=== PATIENT | male | born 1980 | race African-American/Black ===

== ENCOUNTER 2017-04-16 09:18 | Emergency (ER) | payer OTHER ==
--- NOTE | ~2017-04-16 | CR7 ---
[facility] A Service of [facility] RADIOLOGY TEXT RESULTS PATIENT: LORRI RANDLE LOCATION: SED : 79 UNIT #: [id number] AGE: [address]: Ramon Freed MD SEX: M ORDER DR: [id number] [place] [id number] E MR#: [id number] Acc #: [id number] NAME: LORRI RANDLE : 1980 SEX: M STUDY DATE/TIME: 04/16/2017 9:50 UNIT: SED ROOM: STUDY DESCRIPTION: CR Abdomen Single AP View Attending Physician: Ramon Freed M.D. Ordering Physician: Ramon Freed M.D. Primary Care Physician: Primary Care Physician No MEDICAL IMAGING REPORT This report is preliminary unless electronic signature is present. EXAM AP view of the abdomen. INDICATIONS Abdominal pain for 3 days. Patient has a history of stones and has right-sided pain today. FINDINGS Exam is degraded by significant overlying bowel gas. There is a radiopaque density, which I think may reflect a stone within the inferior pole of the left kidney. There also is another radiopaque density seen projecting over the inferior pole of the right kidney which could reflect an additional stone or some additional bowel gas material. Given fairly extensive fecal burden, correlation with history of constipation is recommended. Bowel gas pattern, however, is not frankly obstructive. IMPRESSION Questionable stones seen within the inferior poles of the kidneys bilaterally; however, assessment of the kidneys is obscured by overlying bowel gas. Given fairly extensive fecal burden, correlation with any history of constipation is recommended. If clinical concern for obstructing stone persists, further evaluation with CT is recommended. Dictated by... Gabriela Callejas M.D. THIS IS AN ELECTRONICALLY VERIFIED REPORT Gabriela Callejas M.D. at 04/18/2017 8:03 AM AFF/psc TD: 04/16/2017 22:54 [facility] A Service of [facility] / [facility] RADIOLOGY TEXT RESULTS PATIENT: LORRI RANDLE LOCATION: SED : 79 UNIT #: [id number] AGE: [address]: Ramon Freed MD SEX: M ORDER DR: TERESO #: [id number] MEDICAL IMAGING REPORT Page 1 of 1
[~2017-04-16 09:18] MED LIST: ANTIVERT PO; MOTRIN PO; ZESTRIL10 M1 PO; ZOFRAN PO
[2017-04-16 09:38] LABS: URINE SOURCE CLEAN CATCH
[2017-04-16 09:40] LABS: URINE APPEARANCE CLEAR; URINE BILIRUBIN NEG (NEG); URINE BLOOD NEG (NEG); URINE COLOR YELLOW; URINE GLUCOSE NEG (NORM); URINE KETONE NEG (NEG); URINE LEUKOCYTE ESTERASE NEG (NEG); URINE NITRATE NEG (NEG); URINE PH 5.5 (5-8); URINE PROTEIN NEG (NEG); URINE SPECIFIC GRAVITY >=1.030 (1.003-1.035); URINE UROBILINOGEN 0.2 MG/DL (NORM)
[2017-04-16 09:42] LABS: MICRO INDICATED? NO
[2017-04-16 09:46] LABS: BASOPHIL# 0.1 X10e3 (0-0.3); EOSINOPHIL# 0.1 X10e3 (0-0.7); EOSINOPHIL% 0.9 % (0.0-7.0); HEMATOCRIT 45.3 % (38.0-50.0); HEMOGLOBIN 15.4 gm/dL (13.0-16.0); LYMPHOCYTE# 2.3 X10e3 (1.0-3.5); LYMPHOCYTE% 37.2 % (17.0-45.0); MEAN CELL VOLUME 88.9 FL (83-96); MEAN CORPUSCULAR HEMOGLOBIN 30.3 PG (28-34); MEAN CORPUSCULAR HGB CONC 34.1 g/dL (30-36); MEAN PLATELET VOLUME 9.5 FL (6.5-11.5); MONOCYTE# 0.4 X10e3 (0-1.0); MONOCYTE% 6.2 % (3.0-12.0); NEUTROPHIL# 3.4 X10e3 (1.5-7.1); NEUTROPHIL% 54.7 % (40-75); PLATELET COUNT 136 X10e3 (140-420); RED CELL DISTRIBUTION WIDTH 14.6 % (11.0-15.5); WHITE BLOOD COUNT 6.1 X10e3 (4.0-10.5)
[2017-04-16 09:51] LABS: DIFF IND NO
[2017-04-16 10:01] LABS: CALCIUM SERUM 8.7 mg/dL (8.4-10.2); CREATININE SERUM 1.1 mg/dL (0.6-1.4); GLOM FILT RATE Estimated 98.9 mL/min (>60); POTASSIUM 4.4 mmol/L (3.5-5.1)
== END 2017-04-16 10:30 | disposition home or self-care (01) ==
LOC: SED 09:18
PROVIDERS: Emergency Medicine
DX: S39.012A Strain of muscle, fascia and tendon of lower back, initial encounter (principal); R10.9 Unspecified abdominal pain; F17.200 Nicotine dependence, unspecified, uncomplicated; Z87.442 Personal history of urinary calculi; Z88.6 Allergy status to analgesic agent; Z79.899 Other long term (current) drug therapy; X58.XXXA Exposure to other specified factors, initial encounter; Y92.9 Unspecified place or not applicable
CPT/HCPCS: 74000; 80048; 81003; 85025; 96374; 96375; 99284; J1885; J2405

== ENCOUNTER 2017-04-19 08:43 | Emergency (ER) | payer OTHER ==
--- NOTE | ~2017-04-19 | EKG ---
PATIENT: RAZIA, LORRI UNIT #: [id number] Ventricular Rate: 59 BPM Atrial Rate: 59 BPM P-R Interval: 152 ms QRS Duration: 80 ms Q-T Interval: 442 ms QTC Calculation(Bezet): 437 ms P [place]: 73 degrees Calculated R [place]: 51 degrees Calculated T [place]: 72 degrees Diagnosis Line: Sinus bradycardia with Premature atrial complexes Diagnosis Line: Otherwise normal ECG Diagnosis Line: When compared with ECG of 29-MAY-2014 12:44, Diagnosis Line: Premature atrial complexes are now Present Diagnosis Line: Confirmed by SHAR WHATLEY MD ([id number]) on Diagnosis Line: 04/26/2017 8:59:59 AM INTERPRETING MD: PHYLICIA JADE
--- NOTE | ~2017-04-19 | CT71 ---
[facility] A Service of [facility] RADIOLOGY TEXT RESULTS PATIENT: LORRI RANDLE LOCATION: SED : 79 UNIT #: [id number] AGE: [address]: Dex Oscar MD SEX: M ORDER DR: [id number] [place] [id number] MR#: [id number] Acc #: [id number] NAME: LORRI RANDLE : 1980 SEX: M STUDY DATE/TIME: 04/19/2017 9:38 UNIT: SED ROOM: STUDY DESCRIPTION: CT Head Wo Contrast Attending Physician: Dex Oscar M.D. Ordering Physician: Dex Oscar M.D. Primary Care Physician: Primary Care Physician No MEDICAL IMAGING REPORT This report is preliminary unless electronic signature is present. EXAM Head CT without HISTORY Dizziness, hot-cold sensation, diarrhea, pain behind both eyes for 2 days. History of hypertension and seizure disorder. 36-year-old male. COMMENT Routine noncontrast head CT is reviewed. There is a comparison from 01/20/2016. Imaging acquired in the axial plane. This CT examination was performed with one or more of the following radiation dose reduction techniques: automatic exposure control, adjustment of mA and/or kV according to patient size, and iterative reconstruction. There is no displaced calvarial fracture. Mastoid air cells show a small amount of fluid or inflammatory change right mastoid tip. The paranasal sinuses are clear where visualized. There is no evidence for acute intracranial hemorrhage or extraaxial fluid collection. The ventricles are normal in size and configuration and the hand-white junction is well-maintained. There is no intracranial mass effect. Nothing to suggest acute cortical infarct but if this is of clinical concern followup imaging is recommended preferably with MRI if the patient is a candidate. Beam-hardening artifact partly obscures the brainstem. IMPRESSION Negative noncontrast head CT. Dictated by... Regina Fay M.D. [facility] A Service of [facility] RADIOLOGY TEXT RESULTS PATIENT: LORRI RANDLE LOCATION: SED : 79 UNIT #: [id number] AGE: [address]: Dex Oscar MD SEX: M ORDER DR: THIS IS AN ELECTRONICALLY VERIFIED REPORT Regina Fay M.D. at 04/19/2017 5:54 PM AFTAB/nelida TD: 04/19/2017 12:24 JOB #: [id number] MEDICAL IMAGING REPORT Page 1 of 1
[2017-04-19] MEDS ORDERED: NO MEDICATIONS (08:53)
[2017-04-19 09:27] LABS: BASOPHIL% 0.4 % (0-2.5); EOSINOPHIL% 0.3 % (0.0-7.0); HEMATOCRIT 43.8 % (38.0-50.0); HEMOGLOBIN 15.1 gm/dL (13.0-16.0); LYMPHOCYTE# 2.4 X10e3 (1.0-3.5); LYMPHOCYTE% 40.9 % (17.0-45.0); MEAN CELL VOLUME 87.9 FL (83-96); MEAN CORPUSCULAR HEMOGLOBIN 30.4 PG (28-34); MEAN CORPUSCULAR HGB CONC 34.6 g/dL (30-36); MEAN PLATELET VOLUME 9.5 FL (6.5-11.5); MONOCYTE# 0.4 X10e3 (0-1.0); NEUTROPHIL% 51.4 % (40-75); PLATELET COUNT 124 X10e3 (140-420); RED BLOOD COUNT 4.98 X10e (3.90-5.60); RED CELL DISTRIBUTION WIDTH 14.4 % (11.0-15.5); WHITE BLOOD COUNT 5.9 X10e3 (4.0-10.5)
[2017-04-19 09:35] LABS: DIFF IND NO
[2017-04-19 09:48] LABS: ALBUMIN SERUM 3.9 g/dL (3.5-5.0); BILIRUBIN, DIRECT 0.1 mg/dL (0.0-0.2); BILIRUBIN,INDIRECT 0.8 mg/dL (0.0-0.9); BILIRUBIN,TOTAL 0.9 mg/dL (0.2-2.0); BUN/CREATININE RATIO 8.18; CALCIUM SERUM 8.6 mg/dL (8.4-10.2); CREATININE SERUM 1.1 mg/dL (0.6-1.4); GLOM FILT RATE Estimated 98.9 mL/min (>60); POTASSIUM 3.5 mmol/L (3.5-5.1); PROTEIN TOTAL SERUM 7.6 g/dL (6.0-8.3)
[2017-04-19] MEDS ORDERED: LISINOPRIL10 MG PO (22:54)
[2017-04-19] MEDS ORDERED: FLEXERIL10 MG PO (23:00)
[2017-04-19] MEDS ORDERED: VOLTAREN75 MG PO (23:00)
[2017-04-20 11:58] LABS: POC - CKMB <1.0 ng/mL (0.0-7.9); POC - TROPONIN <0.05 ng/mL (<=0.05)
== END 2017-04-19 11:32 | disposition home or self-care (01) ==
LOC: SED 08:43
PROVIDERS: Emergency Medicine
DX: I10 Essential (primary) hypertension (principal); R53.83 Other fatigue; R51 Headache; F17.200 Nicotine dependence, unspecified, uncomplicated; Z88.6 Allergy status to analgesic agent
CPT/HCPCS: 36415; 70450; 80048; 80076; 82553; 84484; 85025; 93005; 96361; 96374; 96375; 99285; J1885; J2270; J2405

== ENCOUNTER 2017-04-19 21:19 | Observation (INO) | payer OTHER ==
--- NOTE | ~2017-04-19 | CT17 ---
[facility] A Service of [facility] RADIOLOGY TEXT RESULTS PATIENT: LORRI RANDLE LOCATION: [facility] 555-01 : 79 UNIT #: [id number] AGE: [address]: Orlando Wall MD SEX: M ORDER DR: [id number] [facility] [address] [place], [place] [address] [id number] I MR#: [id number] Acc #: [id number] NAME: LORRI RANDLE : 1980 SEX: M STUDY DATE/TIME: 04/20/2017 17:55 UNIT: [facility] ROOM: [facility] STUDY DESCRIPTION: CT Angio Head Attending Physician: Orlando Wall M.D. Ordering Physician: Orlando Wall M.D. Primary Care Physician: Primary Care Physician No MEDICAL IMAGING REPORT This report is preliminary unless electronic signature is present EXAM CT angiography neck/head HISTORY Vertigo. Syncopal episode. Headache. Vomiting. FINDINGS CT angiography of the neck and head performed. Multiple three-dimensional reconstructions of the vascular structures performed. Patient received 100 mL Isovue 370 intravenously. No prior angiographic imaging of the brain. CT of the head performed 04/19/2017 showed no acute abnormality. This CT examination was performed with one or more of the following radiation dose reduction techniques: automatic exposure control, adjustment of mA and/or kV according to patient size, and iterative reconstruction. On the current study, there is no evidence of regional hypoperfusion. No enhancing intra- or extraaxial mass lesion. The visualized intraorbital soft tissues, nasopharyngeal, oropharyngeal, pharyngeal mucosal, retropharyngeal spaces, larynx, subglottic airway, superior mediastinum unremarkable. Lung apices show paraseptal emphysema on the right. Thyroid, submandibular, parotid glands unremarkable. Mucosal thickening right maxillary sinus. Opacification of some left mastoid air cells. Correlate with any clinical concern for mastoid inflammation. Mild degenerative changes in the spine. Dental hardware is present. No acute appearing bony abnormality. VASCULAR ANATOMY: Visualized pulmonary arteries unremarkable. Visualized aortic arch normal in caliber. Great vessel origins patent. Subclavian arteries normal in appearance. The bilateral vertebral arteries are patent with left vertebral artery slightly larger than right. Right vertebral artery decreases further in size beyond the right posterior inferior cerebellar artery. Both vertebral arteries contribute to basilar artery which appears within normal limits of size. The bilateral posterior cerebral arteries are patent. I do not clearly see posterior STS. [facility] A Service of [facility] & [facility] RADIOLOGY TEXT RESULTS PATIENT: LORRI RANDLE LOCATION: [facility] [id number] : 79 UNIT #: [id number] AGE: [address]: Orlando Wall MD SEX: M ORDER DR: communicating arteries. There is no indication of posterior circulation aneurysm, vascular cut off or AV shunting. The bilateral common carotid arteries, cervical internal and external carotid arteries appear patent. There is no evidence of hemodynamically significant luminal narrowing in the bilateral cervical internal carotid arteries using NASCET criteria. The bilateral petrous and cavernous carotid arteries are patent. The bilateral anterior and middle cerebral arteries appear patent. There is an anterior communicating artery. No anterior circulation aneurysm, vascular cut off, AV shunting or embolic phenomenon suggested. The major dural venous sinuses appear patent. IMPRESSION 1. There is no evidence of hemodynamically significant luminal narrowing in the bilateral cervical internal carotid arteries using NASCET criteria. The intracranial anterior circulation is within normal limits. See discussion above. An anterior communicating artery is present. 2. Bilateral vertebral arteries patent with dominant left vertebral artery. The basilar artery is patent and within normal limits of caliber. Posterior cerebral arteries unremarkable. Posterior communicating arteries not clearly identified. 3. No acute abnormality seen in brain. 4. There is some mucosal thickening in the right maxillary sinus. No indication of acute paranasal sinusitis. 5. Opacification of some right mastoid air cells. Correlate with any clinical concern for mastoid inflammation. 6. Please see remainder of incidental findings in body of report above. Dictated by... Mani Roberson M.D. THIS IS AN ELECTRONICALLY VERIFIED REPORT Mani Roberson M.D. at 04/21/2017 10:48 PM JOE/nelida TD: 04/21/2017 11:33 JOB #: [id number] MEDICAL IMAGING REPORT Page 1 of 1 COPY
--- NOTE | ~2017-04-19 | CO ---
Unit #: [id number] #: [id number] Patient: LORRI RANDLE [id number] [address] [place], [place] [address] [id number] I MR#: [id number] NAME: LORRI RANDLE ROOM: 555 Age: 36 Sex: M Admission Date: 04/19/2017 : 1980 Attending Physician: Orlando Wall M.D. Primary Care Physician: Primary Care Physician No Consultation Date: 04/20/2017 CONSULTATION REPORT REASON FOR CONSULTATION Bradycardia and syncopal episode. HISTORY OF PRESENT ILLNESS This is a 36-year-old male with previous history of hypertension noncompliance, kidney stones in the past, marijuana abuse, history of seizure activity but he has not been on Keppra for some time, history of syncopal episodes in the past with a workup years ago with no definite diagnosis. He came to emergency room with headache, nausea, vomiting, and dizziness. While he was in the ER at [facility], he was found to be very hypertensive. His blood pressure was 160/124, heart rate was 66, respirations 18, afebrile, and O2 saturation was 100% on room air. The patient was discharged home after observed in the ER for some time with a prescription of lisinopril. According to the patient, he did take it once he got it filled at home. He said after he got home, he started having some nausea and vomiting. His headache was worsened and he just was feeling very weak and lightheaded and dizzy. He returned back here at [facility] for the above-mentioned symptoms. The patient admits to not sleeping well in the last couple nights and not eating a lot for the last couple of days. The patient had been to the ER about 3 days prior to this episode with flank pain with history of kidney stones. He had x-ray of his abdomen did not show any definite stones, but he said that discomfort did resolve. He has not had any since that time. While he was in the ER according to information, the patient had a syncopal episode, before that feeling lightheaded and weak and had a headache. He appeared to have passed out, although he was protecting his fall by holding onto the counter. There was no seizure activity noted by the staff. He was awake and less than 30 seconds, speaking fluently. There was no postictal phase. The patient's heart rate at that time remain in sinus bradycardia, heart rate 40s and 50s. His initial cardiac enzymes are negative. He refused orthostatic vitals, he said he was too weak. The patient was admitted for further evaluation and workup. Cardiology consulted along with Neurology. He did have a CT of his head which was negative. PAST MEDICAL HISTORY 1. Hypertension but noncompliant with medication in the past. 2. History of kidney stones. 3. Nicotine abuse, reformed smoker, quit in 2008. 4. Marijuana abuse. 5. History of seizures, used to take Keppra. 6. History of syncopal episodes in the past. Further workup years ago down in [place] with no definite diagnosis. Unit #: [id number] #: [id number] Patient: LORRI RANDLE PAST SURGICAL HISTORY None. HOME MEDICATIONS 1. Lisinopril 10 mg daily that was just started yesterday from the ER at [facility]. 2. Diclofenac 75 mg p.o. twice daily. 3. Flexeril 10 mg p.o. three times daily p.r.n. ALLERGIES No known drug allergies. SOCIAL HISTORY The patient lives with his family and friends. 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 He smokes marijuana. Has couple cigars daily. He denies any other illicit drug abuse or alcohol abuse. He said he used to drink alcohol, but quit that also in 2008. FAMILY HISTORY No known coronary artery disease in immediate family members. REVIEW OF SYSTEMS See details in HPI. PHYSICAL EXAMINATION GENERAL: Mr. Randle is a 36-year-old male, in no acute respiratory distress. He is awake, alert, and oriented. VITAL SIGNS: Blood pressure is 136/106, respirations are 16, heart rate is 48, temperature is 99.5, O2 saturations 100% on room air. NECK: Trachea midline. No thyromegaly or lymphadenopathy. Normal carotid upstrokes. No jugular venous distention. HEART: S1 and S2. Regular rate and rhythm. No clicks, murmurs, or rubs. There is no signs or symptoms of unstable angina or acute congestive heart failure. LUNGS: Diminished, otherwise clear. ABDOMEN: Flat, soft. Positive bowel sounds present. EXTREMITIES: Pedal pulses are palpable. No pedal edema. DIAGNOSTIC STUDIES LABORATORY RESULTS: Glucose is 108, BUN 8, creatinine 0.9, EGFR is 126. Sodium 134, potassium 3.7, chloride 104, CO2 of 25, calcium is 8.6, total protein 7.6, albumin 3.9, bilirubin total 0.9, AST 16, ALT 14, alkaline phosphatase is 72. TSH is 0.93. WBC 6.5, hemoglobin 14.8, hematocrit 44.0, platelets is 120. Urine tox screen is positive for marijuana and opiates. Urinalysis is unremarkable. Cardiac enzymes; CK-MB is less than 1.0, troponin less than 0.05. IMAGING STUDIES: Chest x-ray is pending. CT of the head without contrast is negative. EKG shows marked sinus bradycardia, heart rate 43 beats per minute, peak T-waves in V2 and V3, left ventricular hypertrophy and prolonged QT. IMPRESSION Unit #: [id number] #: [id number] Patient: PROSTELL,LORRI 1. Syncope, questionable etiology. 2. Sinus bradycardia. 3. Poorly controlled hypertension. 4. Marijuana use. 5. History of seizures in the past. 6. Decreased platelets. 7. Nausea, vomiting, and headache. PLAN 1. Cardiology consulted to assist with evaluation and management of his blood pressure and also to evaluate his sinus bradycardia. 2. Obtain orthostatic vital signs and evaluate for any orthostasis. 3. Obtain 2D echo to evaluate LV function and valves. 4. The patient has been started on lisinopril. We will increase that to 10 mg p.o. b.i.d. with parameters and also the patient is on p.r.n. hydralazine. 5. TSH is normal. 6. Heart rate on the telemetry unit, his EKG is low as 41. There was no pauses or sinus arrest, most likely this is not the cause of his symptoms. There is nothing that would indicate that he would need any type of pacemaker. May need an event monitor in the future if he continues to assist if his symptoms persist. Likely his syncopal episode may be from dehydration when he has nausea and vomiting. 7. We will continue to try to control his blood pressure as mentioned with lisinopril on hydralazine. May need to add additional medication, but will evaluate. Encourage the patient to completely quit marijuana use. 8. Neurology has been consulted, also to evaluate the patient. 9. Further recommendations pending per Dr. Villalta's. Thank you very much for allowing us to assist in the care. Dictated by... Marita Acosta A.P.R.N. for SHelene Maloney/floridalma TD: 04/22/2017 04:22 JOB #: [id number] CONSULTATION REPORT Page 1 of 1 X Marita cAosta SORTER/ASSAY TECH X CONSULTATION REPORT
--- NOTE | ~2017-04-19 | EKG ---
PATIENT: MAIA RANDLEONE UNIT #: [id number] Ventricular Rate: 49 BPM Atrial Rate: 49 BPM P-R Interval: 152 ms QRS Duration: 82 ms Q-T Interval: 452 ms QTC Calculation(Bezet): 408 ms P [place]: 65 degrees Calculated R [place]: 30 degrees Calculated T [place]: 32 degrees Diagnosis Line: Sinus bradycardia Diagnosis Line: Abnormal ECG Diagnosis Line: When compared with ECG of 29-MAY-2014 12:44, Diagnosis Line: ST no longer elevated in Anterior leads Diagnosis Line: Nonspecific T wave abnormality now evident in Diagnosis Line: Anterior leads Diagnosis Line: Confirmed by RANJIT ALMANZAR MD ([id number]) on Diagnosis Line: 04/21/2017 9:59:26 AM INTERPRETING DANI KIM
--- NOTE | ~2017-04-19 | EKG ---
PATIENT: RAZIA, LORRI UNIT #: [id number] Ventricular Rate: 43 BPM Atrial Rate: 43 BPM P-R Interval: 148 ms QRS Duration: 82 ms Q-T Interval: 484 ms QTC Calculation(Bezet): 408 ms P [place]: 55 degrees Calculated R [place]: 29 degrees Calculated T [place]: 48 degrees Diagnosis Line: Marked sinus bradycardia Diagnosis Line: Abnormal ECG Diagnosis Line: When compared with ECG of 19-APR-2017 22:59, Diagnosis Line: (unconfirmed) Diagnosis Line: No significant change was found Diagnosis Line: Confirmed by RANJIT ALMANZAR MD ([id number]) on Diagnosis Line: 04/21/2017 10:03:19 AM INTERPRETING : JULIO
--- NOTE | ~2017-04-19 | CT23 ---
[facility] A Service of [facility] RADIOLOGY TEXT RESULTS PATIENT: LORRI RANDLE LOCATION: [facility] 555-01 : 79 UNIT #: [id number] AGE: [address]: Orlando Wall MD SEX: M ORDER DR: [id number] [place] [id number] [facility]. [place], [place] [address] [id number] I MR#: [id number] Acc #: [id number] NAME: LORRI RANDLE : 1980 SEX: M STUDY DATE/TIME: 04/20/2017 17:55 UNIT: [facility] ROOM: [facility] STUDY DESCRIPTION: CT Angio Neck Attending Physician: Orlando Wall M.D. Ordering Physician: Orlando Wall M.D. Primary Care Physician: Primary Care Physician No MEDICAL IMAGING REPORT This report is preliminary unless electronic signature is present EXAM CT angiogram of the neck FINDINGS Please see CT angiogram of the head for results. Dictated by... Mani Roberson M.D. THIS IS AN ELECTRONICALLY VERIFIED REPORT Mani Roberson M.D. at 04/23/2017 10:21 AM Veronica TD: 04/21/2017 11:32 JOB #: [id number] MEDICAL IMAGING REPORT Page 1 of 1 COPY
--- NOTE | ~2017-04-19 | CO ---
Unit #: [id number] #: [id number] Patient: LORRI RANDLE [id number] [facility] [address] [facility]. [place], [place] [address] [id number] MR#: [id number] NAME: LORRI RANDLE ROOM: 555 Age: 36 Sex: M Admission Date: 04/19/2017 : 1980 Attending Physician: Orlando Wall M.D. Primary Care Physician: Primary Care Physician No Consultation Date: 04/20/2017 CONSULTATION REPORT PRIMARY CARE PHYSICIAN Not listed. REASON FOR CONSULTATION Syncope. PATIENT IDENTIFICATION This is a 36-year-old right-handed male, evaluated in room 555 at [facility]. SOURCE OF INFORMATION Obtained from the patient, the patient's friend at the bedside as well as medical record. HISTORY OF PRESENT ILLNESS This is a 36-year-old right-handed male with past medical history of hypertension, seizure disorder, who presents to [facility] ER on 04/16/2017 for back pain. He was given some diclofenac and Flexeril at that time and apparently he returned to [facility] on the day of admission for elevated blood pressure. He was given a prescription for lisinopril 10 mg daily. Apparently, he had a head CT scan that was normal. I am uncertain if he had other complaints. He after discharge from there came back to the ER here at [facility] for chief complaint of headache, dizziness, loss of balance, and generalized weakness. His blood pressure was elevated at 180/96. He has had elevated diastolic pressures here in the ER since. Apparently while in the ER, he had a syncopal episode, but no seizure activity or postictal state was reported. He states he lost consciousness. He was admitted for further workup and evaluation of syncope, headache, sinus bradycardia, which was seen on the EKG and generalized weakness as well as nausea and vomiting. Cardiology and Neurology were asked to further evaluate. The patient denies any recent injury. He does complain of chills, but he is afebrile. He mainly complains of at this time of "the room spinning" for the last 3 days. He complains of headache that he states is bifrontal. He does complain of associated nausea and vomiting. He complains of dizziness that he describes as the room spinning, loss of balance, and generalized weakness. Again, he has been afebrile. He has no cough, wheezing, focal weakness or paresthesia, shortness of air, chest pain. No change in speech such as aphasia or slurred speech. He tells me that he has had seizures in the past with loss of consciousness, but states he stopped Keppra due to "nightmares and sweat." He states that he has not taken medication for that in a long time. He is unable to tell me when his last event was. Again, he did have a syncopal episode in the ER, but no observed seizure Unit #: [id number] #: [id number] Patient: PROSTELL,LORRI activity or postictal state was noted. Upon evaluation in interview, he states that he feels very very weak and that he overall just does not feel well. He denies any exposure to ill or sick contacts or travel outside the country. He denies any neck pain. He complains mostly of headache and the room spinning, his primary complaint at this time. PAST MEDICAL HISTORY 1. Hypertension. 2. Seizure disorder. The patient states he does not have a neurologist and does not take seizure medication. He states that he was on Keppra in the past, but that he took himself off it due to "side effects." When asked about side effects, he states that he had "nightmares and sweats." I do not have any details or records regarding history of seizure disorder available. PAST SURGICAL HISTORY He denies. FAMILY HISTORY Noncontributory to the present condition. SOCIAL HISTORY He smokes few cigars daily and smokes marijuana. His urine tox screen is positive for opioids and marijuana. He states that he was given morphine at [facility] in that he does not have a prescription for opioids or use any street drugs. He denies alcohol abuse. ALLERGIES No known drug allergies. HOME MEDICATIONS Include lisinopril 10 mg p.o. daily, which was started on the day of admission, diclofenac 75 mg p.o. b.i.d., Flexeril 10 mg p.o. t.i.d. p.r.n. that were apparently recently started as well. REVIEW OF SYSTEMS 14-point review of systems attempted. Pertinent positives are as discussed above otherwise negative. PHYSICAL EXAMINATION VITAL SIGNS: Temperature 99.5, otherwise he has been afebrile; pulse 54; respirations 18; blood pressure 155/94, blood pressure in the ER on arrival was 160/124, repeat pressures was 171/103, he has had some elevated blood pressures specifically his diastolic pressures; oxygen saturation 100%; height 5 feet 7 inches; weight 130 pounds. BMI 20. NEUROLOGIC: The patient is awake, ill appearing, but in no acute distress. He is withdrawn and avoidant, not fully cooperative on exam. He gives a poor effort. However, his speech is clear. He is oriented to person, place, and time as well as events. He has no right or left confusion. No finger agnosia. No aphasia or dysarthria. Cranial nerve exam, he demonstrates full salazar of vision. Eyes are conjugate without ptosis or nystagmus. Extraocular movements are intact. Sensation is intact. Strength of muscles of facial expression is intact. Hearing is intact to voice and finger rub. Tongue is midline. Unable to visualize uvula and palate. Head turning and shoulder shrug are unremarkable, although he does complain of some dizziness with head turning and extraocular movement exam. Neck is supple. No meningismus appreciated. Motor exam, strength is equal. He is generally weak, but gives a poor Unit #: [id number] #: [id number] Patient: PROSTELL,LORRI effort. Sensory exam is intact. Gait and Romberg deferred. Reflexes, 1/4. Toes are equivocal. Coordination, no past-pointing seen. No abnormalities or ataxia seen. I attempted Brenann-Hallpike, which was difficult as the patient states he is unable to help with sitting up in the bed. He complains of vertigo throughout exam and evaluation, but his Jewell-Hallpike is negative currently. I do not see any nystagmus, any cranial nerve findings. He does persistently reports that the room feels as though "spinning." DIAGNOSTIC STUDIES IMAGING STUDIES: CT of the head without contrast on 04/19/2017 per Radiology report, impression, normal noncontrast head CT. X-ray of the abdomen, single AP view on 04/16/2017, impression per Radiology report, questionable stone seen within the inferior poles of the kidneys bilaterally. However, cysts in the kidneys are obscured by overlying bowel gas given fairly extensive fecal burden correlation with any history of constipation is recommended. LABORATORY RESULTS: White blood cell count 5.9, hemoglobin 15.1, hematocrit 43.8, and platelet count 124. Sodium 135, potassium 3.5, chloride 107, CO2 of 23, glucose 86, BUN 9, creatinine 1.1, estimated GFR 98.9, calcium 8.6, AST 16, ALT 14, alkaline phosphatase 72, total protein 7.6, albumin 3.9. Urine drug screen positive for marijuana and opioids. Glucose 94. Today's sodium is 134, potassium 3.7, chloride 104, CO2 of 25, glucose 108, BUN 8, creatinine 0.9, estimated GFR 126, calcium 8.6. Today CBC shows a white count of 6.5, hemoglobin 14.8, hematocrit 44, platelet count 120. IMPRESSION 1. New onset vertigo for 3 days. 2. Acute on chronic bifrontal headache. He is ill appearing, but nothing currently to suggest COMBINE MECHANIC infection. No meningismus. No fever and no leukocytosis. He denies exposure to ill or sick contacts. He does complain of chronic daily headache though he reports that this is much worse than normal and is unrelenting and not improved with vqhh-asd-detqhtx medication at home. It did improve some with Toradol in the ER. 3. Poorly controlled high blood pressure. 4. Sinus bradycardia. 5. Syncope. 6. History of seizure disorder. Records not available. The patient states that he took himself off Keppra in the past due to side effects. 7. Marijuana use. PLAN I had a long discussion with Dr. Abdi in reviewing the patient's records and chart. We will restart him on seizure medication. We will try Vimpat as the patient states he is unable to tolerate Keppra in the past due to side effects. Syncopal episode in the ER was not documented as being consistent with seizure activity. However given his history of seizure disorder with recurrent events in the past, recommend continuing Vimpat and consideration of outpatient epilepsy monitoring to further evaluate regarding management. We will check B12, folate, thyroid, CK level. Also given his complaints of severe vertigo, we will check MRI of the brain and CT angiogram of the head and neck. He is being treated by the primary for complicated migraine, and has been started on symptomatic management. Further recommendations to be made pending workup and further clinical course. Our goal is to rule out any acute primary neurologic Unit #: [id number] #: [id number] Patient: PROSTELL,LORRI etiologies and symptomatic management. Nothing at this time to suggest status epilepticus, stroke, or COMBINE MECHANIC infection. We will follow along with you though closely. Case was discussed with Dr. Abdi and he agrees. Please see orders. Please see chart. We thank you very much for allowing us to assist in care of this patient. Dictated by... Agueda Jones A.P.R.N. for Helene Rolon/floridalma TD: 04/22/2017 04:38 JOB #: [id number] CONSULTATION REPORT Page 1 of 1 X Agueda Jones MANPOWER DEVELOPMENT SPECIALIST MANAGER X CONSULTATION REPORT
--- NOTE | ~2017-04-19 | HP ---
Unit #: [id number] #: [id number] Patient: LORRI RANDLE [id number] [address] [place], [place] [address] [id number] I MR#: [id number] NAME: LORRI RANDLE ROOM: 555 Age: 36 Sex: M Admission Date: 04/19/2017 : 1980 Attending Physician: Orlando Wall M.D. Primary Care Physician: No Primary Care Physician HISTORY AND PHYSICAL CHIEF COMPLAINT Headache, dizziness, nausea, vomiting, syncopal episode. DISCUSSION This is a 36-year-old gentleman with past medical history significant for history of hypertension, seizures, not been taking medication for blood pressure and seizures. He had a visit to [facility] emergency room on April 16 for back pain, given some diclofenac and Flexeril and also he had a visit today [place] [facility] [place] he was found to have elevated blood pressure. Was given prescription for lisinopril 10 mg daily which he is took today. Before, he had not been taking blood pressure medications, being noncompliant. Eventually, he was discharged home [place] [facility] head was normal. He came back to the emergency room here with chief complaint of having headaches, dizziness, loss of balance, generalized weakness. He was found to have elevated blood pressure of 180/96 in the emergency room. While in the emergency room, he had a syncopal episode and eventually being admitted of further workup and evaluation. On EKG, he was in sinus bradycardia, otherwise sinus rhythm. He feels very weak. He said he threw up three to four times today. He has been having headache and also complaining of back pain. Denies any other complaint. No fever, no chills, no cough, no wheezing. PAST MEDICAL HISTORY 1. History of hypertension. 2. History of seizures. PAST SURGICAL HISTORY Denies any surgical intervention. SOCIAL HISTORY He smokes marijuana and also a couple of cigars daily. He denies illicit drug use. ALLERGIES No known drug allergies. MEDICATIONS Medications from home: 1. Lisinopril 10 mg daily. 2. Diclofenac 75 mg twice a day. 3. Flexeril 10 mg three times a day p.r.n. FAMILY HISTORY Noncontributory. Denies any history of heart problems in the family. No Unit #: [id number] #: [id number] Patient: PROSTELL,LORRI diabetes. REVIEW OF SYSTEMS All review of systems negative except as in history of present illness. PHYSICAL EXAMINATION GENERAL: Middle aged man lying in the bed comfortably, currently not in any distress. He is alert, awake, oriented x3. CURRENT VITAL SIGNS: Temperature 98.5, heart rate 65, respiratory rate 18, blood pressure 182/96. Oxygen 98% on room air. HEENT: Pupils equal, reactive to light and accommodation. Head is normocephalic, atraumatic. NECK: Supple. No JVD, no thyromegaly. HEART: S1, S2. Regular rate and rhythm. LUNGS: Clear to auscultation. No rhonchi, no wheezing. ABDOMEN: Soft, nontender, nondistended. Bowel sounds positive. EXTREMITIES: Inspection normal. No cyanosis, no clubbing, no edema. NEURO: Alert, oriented x3. No focal neurologic deficit. Cranial nerves II-XII intact. PSYCH: Seems anxious and depressed. DIAGNOSTIC STUDIES LABORATORY: White count 5, hemoglobin 15, hematocrit 43, platelets 124. Chemistry - sodium 135, potassium 3.5, chloride 107, glucose 86, BUN 9, creatinine 1.1. LFTs within normal limits. CT head is normal. ASSESSMENT AND PLAN 1. Syncopal episode: Electrocardiogram shows sinus bradycardia. Will admit the patient on monitored bed. Ask cardiology to evaluate. 2. Generalized weakness. 3. Headache and dizziness. 4. Nausea, vomiting: Start patient on intravenous Protonix and Zofran. 5. Hypertension with history of elevated blood pressure: Resume lisinopril. Place on hydralazine on p.r.n. basis. 6. History of seizures, not on any medication. 7. Marijuana use. 8. History of kidney stone. 9. DVT prophylaxis: Will place the patient on SCDs. Dictated by Helene Hitchcock TD: 04/20/2017 11:02 JOB #: [id number] Unit #: [id number] #: [id number] Patient: PROSTELL,LORRI HISTORY AND PHYSICAL Page 1 of 1 X X HISTORY AND PHYSICAL
[~2017-04-19 21:19] MED LIST changes: +NO MEDICATIONS
[2017-04-19] MEDS ORDERED: LISINOPRIL10 MG PO (22:54)
[2017-04-19] MEDS ORDERED: FLEXERIL10 MG PO (23:00)
[2017-04-19] MEDS ORDERED: VOLTAREN75 MG PO (23:00)
[2017-04-19 23:27] LABS: AMPHETAMINE NEG (NEG); BARBITURATES NEG (NEG); BENZODIAZEPINES NEG (NEG); COCAINE NEG (NEG); MARIJUANA POS (NEG); OPIATES POS (NEG); TRICYCLIC ANTIDEPRESSANTS NEG (NEG); U METHADONE NEG (NEG)
[2017-04-20 06:00] LABS: BASOPHIL% 0.4 % (0-2.5); HEMOGLOBIN 14.8 gm/dL (13.0-16.0); LYMPHOCYTE# 2.4 X10e3 (1.0-3.5); LYMPHOCYTE% 37.7 % (17.0-45.0); MEAN CELL VOLUME 88.3 FL (83-96); MEAN CORPUSCULAR HEMOGLOBIN 29.7 PG (28-34); MEAN CORPUSCULAR HGB CONC 33.6 g/dL (30-36); MEAN PLATELET VOLUME 10.2 FL (6.5-11.5); MONOCYTE# 0.4 X10e3 (0-1.0); NEUTROPHIL# 3.6 X10e3 (1.5-7.1); NEUTROPHIL% 55.9 % (40-75); RED BLOOD COUNT 4.98 X10e (3.90-5.60); RED CELL DISTRIBUTION WIDTH 14.1 % (11.0-15.5); WHITE BLOOD COUNT 6.5 X10e3 (4.0-10.5)
[2017-04-20 06:30] LABS: BUN/CREATININE RATIO 8.88; CALCIUM SERUM 8.6 mg/dL (8.4-10.2); CREATININE SERUM 0.9 mg/dL (0.6-1.4); POTASSIUM 3.7 mmol/L (3.5-5.1)
[2017-04-20 06:50] LABS: DIFF IND NO; PLATELET COUNT 120 X10e3 (140-420)
[2017-04-20 15:30] LABS: FOLATE (FOLIC ACID) 16.3 ng/mL (>5.8)
== END 2017-04-20 23:39 | disposition left against medical advice (07) ==
LOC: CED 21:19 → CEDOF 23:10 → C5B 04-20 01:42
PROVIDERS: Emergency Medicine; Internal Medicine
DX: R55 Syncope and collapse (principal); R00.1 Bradycardia, unspecified; R53.1 Weakness; R51 Headache; R42 Dizziness and giddiness; I10 Essential (primary) hypertension; F17.290 Nicotine dependence, other tobacco product, uncomplicated; R11.2 Nausea with vomiting, unspecified; F12.90 Cannabis use, unspecified, uncomplicated; Z87.442 Personal history of urinary calculi; Z86.69 Personal history of other diseases of the nervous system and sense organs
CPT/HCPCS: 70496; 70498; 80048; 80307; 82550; 82607; 82746; 82947; 84443; 85025; 93005; 93306; 96361; 96374; 96375; 99285; C9113; G0378; J0360; J1100; J1885; J2405; J3030; Q9967

== ENCOUNTER 2017-04-22 09:32 | Inpatient (IN) | payer OTHER ==
--- NOTE | ~2017-04-22 | HP ---
Unit #: [id number] #: [id number] Patient: LORRI RANDLE [id number] [facility] [address] [facility]. [place], [place] [address] [id number] MR#: [id number] NAME: LORRI RANDLE ROOM: Age: 36 Sex: M Admission Date: 04/22/2017 : 1980 Attending Physician: Paula Barr Pa-C Primary Care Physician: No Primary Care Physician HISTORY AND PHYSICAL REASON FOR ADMISSION Persistent weakness, headaches, dizziness at home. HISTORY OF PRESENT ILLNESS The patient is a 36-year-old male, who was recently admitted to [facility] on April 19, 2017 and had elected to leave AMA on the morning of April 22, 2017 at approximately 0100. He stated that he had family care issues at home with his daughters and therefore elected to leave AMA. At that point in time, he was admitted and apparently he was noted to be bradycardic. Consultation had been placed to cardiology who were set to evaluate patient with 2D echocardiogram as well as further evaluation. Unfortunately, the patient elected to AMA. His heart rate on previous admission showed approximately 41. There were no pauses or sinus arrest which were noted. Neurology services were also consulted that hospital admission as well for evaluation. Patient did undergo a CTA head which did not show any acute process. Patient is now being readmitted for the same. Laboratory studies from prior admission show a normal TSH as well as normal electrolytes were noted. PAST MEDICAL HISTORY 1. Nephrolithiasis. 2. History of hypertension. 3. Seizure disorder. 4. Patient was evaluated in 2008 and was told he needs a pacemaker at that time. In 2013, he was evaluated by cardiology in [place] and was told that he needs to have a pacemaker placed, but he refused. PAST SURGICAL HISTORY None. FAMILY HISTORY Father has numerous cardiac conditions, he believes heart disease as well as slow heartbeat. SOCIAL HISTORY Positive for marijuana. Positive for tobacco. Negative for alcohol. He denies illicit drug use. ALLERGIES Unit #: [id number] #: [id number] Patient: LORRI RANDLE No known drug allergies. HOME MEDICATIONS 1. Lisinopril. 2. Diclofenac and Flexeril which were apparently recently started as an outpatient several weeks ago status post fall for back spasms. REVIEW OF SYSTEMS Please see HPI. A 12-point otherwise negative except for those positive and noted in the HPI. PHYSICAL EXAMINATION VITAL SIGNS: Temperature 97.8, pulse 50, respiratory 14, blood pressure 150/90. GENERAL APPEARANCE: A thin 36-year-old -Algerian male lying comfortably in no acute distress. HEENT: Head: Atraumatic normocephalic. Ears: Tympanic membranes do not reveal erythema, injection. NECK: Supple. CARDIOVASCULAR: S1, S2 without murmur. RESPIRATORY: Clear. GASTROINTESTINAL/ABDOMEN: Nontender, nondistended. EXTREMITIES: Lower extremities have no history of lower extremity edema. No calf tenderness. NEUROLOGIC: Patient A and O x3. No evidence of any focal nerve deficits. INITIAL IMPRESSION 1. Sinus bradycardia. 2. Profound weakness. 3. Dizziness. 4. Persistent headaches. 5. History of hypertension. 6. Prior history of questionable seizure disorder. PLAN 1. Admission to telemetry floor. 2. Cardiac consultation. 3. EKG shows sinus bradycardia with a rate of 45. He tells me that he was notified that he requires pacemaker placement approximately three years ago in [place]. Therefore, will have cardiac evaluation and further evaluation including a 2D echocardiogram and/or heart monitor. Possible pacemaker evaluation may be considered as well. Routine laboratory studies to follow as well. 4. Will check a MRI, MRA to rule out occult neurological process but for now it seems very cardiac in origin. All plans were discussed with patient in detail. He agrees to assessment and plan as stated above. Dictated by Helene Carpenter/comfort Unit #: [id number] #: [id number] Patient: LORRI RANDLE TD: 04/22/2017 12:29 JOB #: [id number] HISTORY AND PHYSICAL Page 1 of 1 X Bryanna Franco MD X HISTORY AND PHYSICAL
--- NOTE | ~2017-04-22 | MR18 ---
[facility] A Service of [facility] RADIOLOGY TEXT RESULTS PATIENT: LORRI RANDLE LOCATION: [facility] 568 : 79 UNIT #: [id number] AGE: [address]: Bryanna Franco MD SEX: M ORDER DR: [id number] [place], [place] [address] [id number] I MR#: [id number] Acc #: [id number] NAME: LORRI RANDLE : 1980 SEX: M STUDY DATE/TIME: 04/22/2017 17:06 UNIT: [facility] ROOM: [facility] STUDY DESCRIPTION: MR Brain Wo Contrast Attending Physician: Bryanna Franco M.D. Ordering Physician: Bryanna Franco M.D. Primary Care Physician: Primary Care Physician No MRI CENTER REPORT This report is preliminary unless electronic signature is present. EXAM MR brain INDICATION Dizziness. Weakness and headache. 5-day duration. Claustrophobia. TECHNIQUE Multiplanar MRI of the brain without contrast. COMPARISON CT head 04/20/[address] head dated 04/19/2017. FINDINGS The midline structures and craniocervical junction are within normal limits. There is no acute intracranial ischemia or hemorrhage. There is some artifact from the patient's braces which deteriorates some image sequences. Lawrence-white matter differentiation is normal. The ventricles and basilar cisterns are normal in size and configuration. No extraaxial collections. IMPRESSION 1. No acute findings. No intracranial ischemia. 2. Small right mastoid effusion. Dictated by... Brijesh Crews M.D. THIS IS AN ELECTRONICALLY VERIFIED REPORT Brijesh Crews M.D. at 04/23/2017 3:06 PM OLIVER/ra TD: 04/23/2017 11:12 JOB #: [id number] [facility] A Service of [facility] RADIOLOGY TEXT RESULTS PATIENT: LORRI RANDLE LOCATION: [facility] 568- : 79 UNIT #: [id number] AGE: [address]: Bryanna Franco MD SEX: M ORDER DR: MRI CENTER REPORT Page 1 of 1 COPY
--- NOTE | ~2017-04-22 | TH ---
Unit #: [id number] #: [id number] Patient: LORRI RANDLE [id number] [address] [address] [id number] I MR#: [id number] NAME: LORRI RANDLE : 1980 SEX: M STUDY DATE/TIME: UNIT: [facility] ROOM: [facility] STUDY DESCRIPTION: Exercise stress test - Nuclear Attending Physician: Bryanna Franco M.D. Primary Care Physician: No Primary Care Physician CARDIOLOGY REPORT PROCEDURE PERFORMED Exercise Cardiolite stress test - Nuclear portion. PROCEDURE Using technetium 99m-labeled Cardiolite, rest and stress SPECT images were obtained. Multiple SPECT images were obtained in various views, including horizontal and vertical long axis and short axis views of the left ventricle. Images were obtained by gated SPECT method. The patient was administered 11.78 mCi of Cardiolite at rest. The patient was administered 33.7 mCi of Cardiolite at peak exercise. Total exercise time is 3 minutes and 8 seconds. On the stress images, there is normal perfusion noted. The rest images show normal perfusion. Comparing the rest and stress images, there is no stress-induced ischemia noted. The left ventricular ejection fraction is calculated to be 46%. The left ventricular cavity is mildly dilated at rest and post stress. There is mild global hypokinesis seen. CONCLUSION 1. No obvious stress-induced ischemia noted. 2. The left ventricular ejection fraction is calculated to be 46%. 3. There is mild left ventricular cavity dilatation both at rest and post stress. 4. It must be noted that the patient reached only 50% of the maximal predicted heart rate. Any ischemia at a higher workload could not be ruled out. Dictated by... Helene Morrison TD: 04/23/2017 15:44 JOB #: [id number] Unit #: [id number] #: [id number] Patient: LORRI RANDLE CARDIOLOGY REPORT Page 1 of 1 X Vianney Taylor MD <ELECTRONICALLY SIGNED> 05/04/17 1429 CARDIOLOGY REPORT
--- NOTE | ~2017-04-22 | ST ---
Unit #: [id number] #: [id number] Patient: LORRI RANDLE [id number] [facility] [place]. [address] [address] [id number] I MR#: [id number] NAME: LORRI RANDLE : 1980 SEX: M STUDY DATE/TIME: 04/23/2017 UNIT: [facility] ROOM: [facility] STUDY DESCRIPTION: Attending Physician: Bryanna Franco M.D. Primary Care Physician: No Primary Care Physician CARDIOLOGY REPORT EXAM Modified exercise Cardiolite stress test. FINDINGS Baseline EKG: Normal sinus rhythm with ventricular rate 66 beats per minute, left ventricular hypertrophy. PROCEDURE The patient walked on the treadmill for 3 minutes and 8 seconds, holding in stage 1 of the Otoniel protocol with a maximum heart rate response of 93 beats per minute with a maximum blood pressure response of 162/98 mmHg. EKG during the test did not show any significant ST-T wave abnormalities. Patient had no complaints of chest pain, palpitations. He did continue to complain of weakness and lightheadedness. He wanted to do the test. IMPRESSION 1. Functional class III with a workload of 4.6 METs. This was a limited exercise Cardiolite stress test. The patient walked for 3 minutes and 8 seconds and held in stage 1 of the Otoniel protocol. Patient at rest before hooking him up on the monitor his heart rate was in the 40s, but when he stood up his heart rate went up into the 60s to 70s. Patient walked for 3 minutes and 8 seconds. His maximum heart rate response was 93 beats per minute. During recovery phase which was 9 minutes into recovery, his heart rate got as low as 41 beats per minutes. 2. Patient was asymptomatic. He was laying on the stretcher without any complaints. 3. Maximum blood pressure response was 162/98 mmHg. 4. Cardiolite was injected after 2 minutes in the first phase of the stress test. Radionuclide tests pending. Please correlate with nuclear images. 5. Dr. Taylor was in the room during this stress portion and she instructed for the modified stress test. Dictated by... Adriane PortilloPLindaRLindaNLinda for Helene Morrison TD: 04/23/2017 10:59 Unit #: [id number] #: [id number] Patient: LORRI RANDLE JOB #: [id number] CARDIOLOGY REPORT Page 1 of 1 X Marita Acosta APRN CARDIOLOGY REPORT
--- NOTE | ~2017-04-22 | DS ---
Unit #: [id number] #: [id number] Patient: LORRI RANDLE [id number] [address] [place], [place] [address] [id number] MR#: [id number] NAME: LORRI RANDLE ROOM: 568 Age: 36 Sex: M Admission Date: 04/22/2017 : 1980 Discharge Date: 04/23/2017 Attending Physician: Bryanna Franco M.D. Primary Care Physician: No Primary Care Physician DISCHARGE SUMMARY REASON FOR ADMISSION Please see History and Physical for details. Patient originally had been admitted for bradycardia, subsequently left AMA, was readmitted for persistent weakness and dizziness. At this time during hospital admission, consultation was placed again to cardiology services. Patient ultimately underwent evaluation by Dr. Taylor. Patient was instructed to follow up with Dr. Pickens on May 09 at 2:00 p.m. No further cardiac workup was recommended at this point in time. This hospital course patient did undergo an exercise Cardiolite stress test which was negative. There was no stress-induced ischemia which was noted. EF was calculated to be approximately 46% and patient was cleared from cardiac standpoint to be discharged home with appropriate outpatient followup. A 30-day event monitor was also commented upon but this will be deferred to Dr. Pickens when the patient follows up. 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 This subsequently prompted the patient to start saying that he wanted to kill himself as soon as possible. Upon saying this, he was placed on a 72-hour hold. Consultation was placed to [facility] team and [facility] saw and evaluated patient. They cleared him from their standpoint and he was recommended to have outpatient followup at Our for ongoing care. I did mention to the patient that although initial HIV test is positive, confirmatory test is currently pending. Recheck is also recommended in two to four weeks. Outpatient evaluation at the [facility] was also recommended as well as evaluation of his partner was, once again, recommended. At this point in time the patient is clinically stable for discharge. He will be discharged home with understanding he will follow up with Dr. Pickens as outlined above. Appropriate information has been given to him by [facility] for ongoing care. He will be given a prescription for hydralazine 25 mg p.o. b.i.d. secondary to elevated blood pressure. No other medications will be prescribed at time of discharge. Overall his prognosis is guarded. He does express very poor insight into his overall disease process and I do question his ability to follow up. He will be given appropriate information for followup with primary care physician in the local area prior to discharge. Unit #: [id number] #: [id number] Patient: PROSTELL,LORRI Dictated by... Helene Carpenter/sandeep TD: 04/23/2017 20:41 JOB #: [id number] DISCHARGE SUMMARY Page 1 of 1 X Bryanna Franco MD X DISCHARGE SUMMARY
--- NOTE | ~2017-04-22 | CR72 ---
[facility] A Service of [facility] RADIOLOGY TEXT RESULTS PATIENT: LORRI RANDLE LOCATION: [facility] [id number] : [birth year] UNIT #: [id number] AGE: [address]: Bryanna Franco MD SEX: M ORDER DR: [id number] [facility] [address] [facility]. [place], [place] [address] [id number] MR#: [id number] Acc #: [id number] NAME: LORRI RANDLE : 1980 SEX: M STUDY DATE/TIME: 04/22/2017 UNIT: [facility] ROOM: [facility] STUDY DESCRIPTION: CR Chest Single View Portable Attending Physician: Bryanna Franco M.D. Ordering Physician: Ed Dwayne Cruz M.D. Primary Care Physician: No Primary Care Physician MEDICAL IMAGING REPORT This report is preliminary unless electronic signature is present EXAM Chest 04/22/2017 1006 hours. HISTORY 36-year-old man complaining of shortness of air, headache, weakness, dizziness and chest pain for 1 day. COMPARISON 05/29/2014 FINDINGS Portable upright chest demonstrates normal cardiac, mediastinal and hilar contours. The lungs are well expanded and clear of acute densities. No effusion or pneumothorax. IMPRESSION No acute cardiopulmonary findings. Dictated by... Analia Pena M.D. THIS IS AN ELECTRONICALLY VERIFIED REPORT Analia Pena M.D. at 04/23/2017 9:29 AM Rick TD: 04/22/2017 15:11 JOB #: [id number] MEDICAL IMAGING REPORT Page 1 of 1 COPY
--- NOTE | ~2017-04-22 | HM ---
Unit #: [id number] #: [id number] Patient: LORRI RANDLE [id number] [place], [place] [address] [id number] MR#: [id number] NAME: LORRI RANDLE : 1980 SEX: M STUDY DATE/TIME: 04/23/2017 UNIT: [facility] ROOM: [facility] STUDY DESCRIPTION: Attending Physician: Bryanna Franco M.D. Primary Care Physician: Nava Primary Care Physician CARDIOLOGY REPORT EXAM 24-hour Holter monitor. DATE APPLIED 04/23/2017 DATE SCANNED 04/30/2017 READ BY [facility] Cardiology. ORDERED BY Vianney Taylor M.D. REASON FOR STUDY Bradycardia. FINDINGS Underlying rhythm is normal sinus rhythm with an average heart rate of 73 beats per minute, minimum heart rate of 41 beats per minute, and a maximum heart rate of 149 beats per minute. The minimum heart rate of 41 beats per minute is noted at 2:33 p.m. The maximum heart rate of 149 beats per minute is noted at 2:01 p.m. The patient had a 1.24 second pause noted at 3:47 p.m. The patient had 212 single multifocal premature ventricular complexes and six ventricular couplets noted. The patient had 247 single premature atrial complex and 231 atrial couplets noted. The patient recorded several symptoms of dizziness, chest discomfort, left arm pain recorded throughout the 24-hour recording which correlated with either normal sinus rhythm or sinus tachycardia. CONCLUSION 1. Underlying rhythm is normal sinus rhythm with an average heart rate of 73 beats per minute, minimum heart rate of 41 beats per minute, and maximum heart rate of 149 beats per minute. 2. No sustained atrial or ventricular arrhythmias noted. 3. No significant pauses noted. 4. Occasional single multifocal premature ventricular complex, premature atrial complex, and atrial couplet noted. 5. Patient recorded multiple symptoms of dizziness, left arm pain, chest pain all of which correlated with either normal sinus rhythm or sinus tachycardia. Unit #: [id number] #: [id number] Patient: LORRI RANDLE Dictated by... Helene [place] TD: 05/02/2017 11:12 JOB #: [id number] CARDIOLOGY REPORT Page 1 of 1 X Vianney Taylor MD <ELECTRONICALLY SIGNED> 05/04/17 1429 HOLTER MONITOR REPORT
--- NOTE | ~2017-04-22 | EKG ---
PATIENT: LORRI RANDLE UNIT #: [id number] Ventricular Rate: 45 BPM Atrial Rate: 45 BPM P-R Interval: 136 ms QRS Duration: 88 ms Q-T Interval: 490 ms QTC Calculation(Bezet): 423 ms P [place]: 81 degrees Calculated R [place]: 84 degrees Calculated T [place]: 52 degrees Diagnosis Line: Sinus bradycardia Diagnosis Line: Otherwise normal ECG Diagnosis Line: When compared with ECG of 20-APR-2017 07:16, Diagnosis Line: No significant change was found Diagnosis Line: Confirmed by SANJIV ALEJANDRO MD ([id number]) on Diagnosis Line: 04/23/2017 4:03:06 PM INTERPRETING MD: JAVON JADE
--- NOTE | ~2017-04-22 | A ---
[facility] Nutrition Therapy DATE: 04/23/17 Patient: LORRI PROSTELL Physician: VLADIMIRR Address: [address] [place] [address] Room/Bed: [address] [place] [address], Zip: [place] [address] Admit Date: 04/22/17 Date of : [birth year] Height: 6 0 Weight: 130 59 NUTRITIONAL ASSESSMENT: REASON: Low BMI Dx: 36 y/o male admitted for weakness, headache, dizzy PMH: HTN, seizures, kidney stones Anthropometrics: ht: 6'0" wt: 130# (59 kg) BMI: 17 Labs: Ca++ 8.3, Alb 3.4, ALT 9 Meds: NaCl, ativan, zofran I/O & Bowel function: 1850/3 BM 04/19 Skin Integrity: WNL Estimated Nutrition Needs: Increased 2' low BMI and weight loss Assessment: Chart reviewed, events noted. Pt seen for low BMI. RD internal combustion engine assembler visited pt at bedside. Pt reports having a very decreased appetite lately. Pt says he only eats one meal a day at home when he gets off of work, sometimes he will not eat at all. He confirmed his current weight of 130# and reports a 30# weight loss since February 2017. RD internal combustion engine assembler encouraged adequate intake and offered to order supplements, patient agreed to ensure enlive BID. RD will continue to follow. Dx: Inadequate oral intake r/t lifestyle, PMH, decreased appetite AEB pt reported decreased appetite and po intake Underweight r/t lifestyle, poor appetite AEB pt reported 30# weight loss (18% severe BW) in past 2 months. Intervention: 1. Healthy heart diet 2. ensure enlive BID Monitoring, Evaluation and Goals: 1. Weight; prevent further unintentional weight loss, promote healthy weight gain 2. Intake; tolerate/consume >50% of all meals and/or supplements Recommendations: 1. Ensure enlive vanilla BID. [facility] Nutrition Therapy DATE: 04/23/17 Patient: LORRI RANDLE Physician: NOELLE Address: [address] [place] [address] Room/Bed: [address] [place] [address], Zip: [place] [address] Admit Date: 04/22/17 Date of : [birth year] Height: 6 0 Weight: 130 59 2. Encourage adequate PO intake. If po intake <50%, recommend to change current diet order to Regular to better facilitate po intake, offer more choices for pt. RD will f/u per protocol as pt is at moderate nutritional risk. Respectfully, CAMILLA PERDOMO, internal affairs investigator Pineda Thapa MS, RD, LD [employer] [facility] [employer] cc: client file
[~2017-04-22 09:32] MED LIST changes: +FLEXERIL10 MG PO; +LISINOPRIL10 MG PO; +VOLTAREN75 MG PO
[2017-04-22 10:18] LABS: BASOPHIL% 0.6 % (0-2.5); EOSINOPHIL% 0.7 % (0.0-7.0); HEMATOCRIT 48.2 % (38.0-50.0); HEMOGLOBIN 16.5 gm/dL (13.0-16.0); LYMPHOCYTE# 1.9 X10e3 (1.0-3.5); LYMPHOCYTE% 34.9 % (17.0-45.0); MEAN CELL VOLUME 87.1 FL (83-96); MEAN CORPUSCULAR HEMOGLOBIN 29.9 PG (28-34); MEAN CORPUSCULAR HGB CONC 34.3 g/dL (30-36); MEAN PLATELET VOLUME 10.2 FL (6.5-11.5); MONOCYTE# 0.3 X10e3 (0-1.0); MONOCYTE% 5.5 % (3.0-12.0); NEUTROPHIL# 3.2 X10e3 (1.5-7.1); NEUTROPHIL% 58.3 % (40-75); PLATELET COUNT 157 X10e3 (140-420); RED BLOOD COUNT 5.53 X10e (3.90-5.60); RED CELL DISTRIBUTION WIDTH 14.1 % (11.0-15.5); WHITE BLOOD COUNT 5.4 X10e3 (4.0-10.5)
[2017-04-22 10:23] LABS: DIFF IND NO
[2017-04-22 10:38] LABS: POC - CKMB <1.0 ng/mL (0.0-7.9); POC - TROPONIN <0.05 ng/mL (<=0.05)
[2017-04-22 11:11] LABS: BILIRUBIN, DIRECT 0.1 mg/dL (0.0-0.2); BILIRUBIN,TOTAL 1.1 mg/dL (0.2-2.0); BUN/CREATININE RATIO 14.16; CALCIUM SERUM 9.4 mg/dL (8.4-10.2); CREATININE SERUM 1.2 mg/dL (0.6-1.4); POTASSIUM 3.4 mmol/L (3.5-5.1); PROTEIN TOTAL SERUM 8.1 g/dL (6.0-8.3)
[2017-04-22 11:40] LABS: URINE SOURCE CLEAN CATCH
[2017-04-22 11:48] LABS: URINE APPEARANCE CLEAR; URINE BILIRUBIN NEG (NEG); URINE BLOOD NEG (NEG); URINE COLOR YELLOW; URINE GLUCOSE NEG (NEG); URINE KETONE 2+ (NEG); URINE LEUKOCYTE ESTERASE NEG (NEG); URINE NITRATE NEG (NEG); URINE PH 6.5 (5-8); URINE PROTEIN NEG (NEG); URINE SPECIFIC GRAVITY 1.017 (1.003-1.035)
[2017-04-22 11:58] LABS: AMPHETAMINE NEG (NEG); BARBITURATES NEG (NEG); BENZODIAZEPINES NEG (NEG); COCAINE NEG (NEG); CULTURE INDICATED? NO; MARIJUANA POS (NEG); OPIATES NEG (NEG); TRICYCLIC ANTIDEPRESSANTS NEG (NEG); U METHADONE NEG (NEG)
[2017-04-23 06:10] LABS: ALBUMIN SERUM 3.4 g/dL (3.5-5.0); BILIRUBIN,TOTAL 0.7 mg/dL (0.2-2.0); CALCIUM SERUM 8.3 mg/dL (8.4-10.2); CREATININE SERUM 1.1 mg/dL (0.6-1.4); GLOM FILT RATE Estimated 98.9 mL/min (>60); POTASSIUM 3.7 mmol/L (3.5-5.1); PROTEIN TOTAL SERUM 6.5 g/dL (6.0-8.3)
[2017-04-23] MEDS ORDERED: ACETAMINOPHEN650 M4 PO (18:14)
[2017-04-23] MEDS ORDERED: HYDRALAZINE HCL25 MG PO (18:15)
== END 2017-04-23 18:47 | disposition home or self-care (01) | DRG 309 ==
LOC: CED 09:32 → CEDOF 12:00 → CED 12:01 → C5C 12:43 → CEDOF 12:43 → C5C 04-23 18:47
PROVIDERS: Family Medicine; Physician Assistant
DX: R00.1 Bradycardia, unspecified (principal); Z68.1 Body mass index [BMI] 19.9 or less, adult; I10 Essential (primary) hypertension; R07.89 Other chest pain; R53.1 Weakness; Z21 Asymptomatic human immunodeficiency virus [HIV] infection status; F17.200 Nicotine dependence, unspecified, uncomplicated; R42 Dizziness and giddiness; R51 Headache; G40.909 Epilepsy, unspecified, not intractable, without status epilepticus; K59.00 Constipation, unspecified; Z87.442 Personal history of urinary calculi; Z82.49 Family history of ischemic heart disease and other diseases of the circulatory system; R63.6 Underweight
CPT/HCPCS: 36415; 70551; 71010; 78452; 80048; 80053; 80076; 80307; 81003; 82553; 82607; 83735; 84439; 84443; 84484; 85025; 86701; 86702; 87806; 93005; 93017; 93225; 93226; 94760; 96361; 96374; 96375; 99285; A9500; J1200; J1885; J2060; J2765; J3475